=== PATIENT | female | born 1955 | race Caucasian/White ===

== ENCOUNTER 2024-03-26 14:28 | Inpatient (IN) ==
[2024-03-26 15:58] LABS: Appearance Urine Slightly Cloudy (Clear); Bilirubin Urine 1+ (Negative); Blood Urine Negative (Negative); Color Urine Yellow; Glucose Urine UA Negative (Negative); Ketones Urine 2+ (Negative); Leukocyte Esterase Urine Negative (Negative); Nitrite Urine Negative (Negative); Protein Urine 1+ (Negative); Specific Gravity Urine 1.025 (1.000-1.030); Urobilinogen Urine Negative (Negative)
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
[2024-03-26 16:38] LABS: Hematocrit (blood only) 38.9 % (37.0-47.0); Mean Corpuscular Hgb Conc 33.4 g/dL (32.0-36.0); Mean Corpuscular Volume 92.8 fL (80.0-100.0); Mean Platelet Volume 11.1 fL (9.4-12.4); Platelet Count 250 K/uL (130-400); RDW Coefficient of Variation 12.9 % (11.5-14.5); RDW Standard Deviation 43.7 fL (36.4-46.3); Red Blood Count 4.19 M/uL (4.20-5.40); White Blood Count 12.07 K/ul (4.8-10.8)
[2024-03-26 16:44] LABS: Albumin Globulin Ratio 1.6 (0.9-2); Albumin Level 4.4 gm/dl (3.4-5.0); BUN Creatinine Ratio 23.2 (10-20); Bilirubin,Total 0.7 mg/dl (0.2-1.0); Calcium 9.1 mg/dl (8.6-10.3); Creatinine Clr Calc Pharmacy 58.3 ml/min; Est GFR (African American) 84.6 ml/min; Globulin 2.7 gm/dl (2.5-4.0); Potassium 3.2 mmol/L (3.5-5.1); Total Protein 7.1 gm/dl (6.0-8.3)
[2024-03-26 16:50] LABS: Basophils # (auto) 0.04 K/uL (0.00-0.20); Basophils % (auto) 0.3 %; Eosinophils # (auto) 0.21 K/uL (0.00-0.50); Eosinophils % (auto) 1.7 %; Immature Granulocytes # (auto) 0.04 K/uL (0.01-0.20); Immature Granulocytes % (auto) 0.3 %; Lymphocytes # (auto) 2.82 K/uL (1.20-3.40); Lymphocytes % (auto) 23.4 %; Monocytes # (auto) 0.99 K/uL (0.11-0.59); Monocytes % (auto) 8.2 %; Neutrophils # (auto) 7.97 K/uL (1.40-6.50); Neutrophils % (auto) 66.1 %
[2024-03-26 16:59] LABS: Thyroid Stimulating Hormone 3.333 uIu/ml (0.300-4.500)
[2024-03-26 17:02] LABS: Acetaminophen < 3 ug/ml (10-30); Salicylate < 3.0 mg/dl (3.0-30)
[2024-03-26] MEDS: hydrOXYzine HCl 25 MG TAB PO STA (17:03)
[2024-03-26] MEDS: LORazepam 1 MG TAB SL STA (18:19)
[2024-03-26 18:46] LABS: Amphetamines+Metham, Urine Neg (Neg); Barbiturates, Urine Neg (Neg); Benzodiazepine, Urine Neg (Neg); Cocaine, Urine Neg (Neg); Fentanyl, Urine Neg (Neg); MDMA (Ecstacy), Urine Pos (Neg); Marijuana, Urine Pos (Neg); Methadone, Urine Neg (Neg); Opiate, Urine Neg (Neg); Phencyclidine, Urine Neg (Neg)
--- NOTE | 2024-03-26 20:28 | Emergency Department Note ---
ED Visit Note The patient was taken in signout from Genevieve at the change of shift. Please see that note for details. Patient was pending inpatient psychiatric placement for increased anxiety where she wanted to await the possibility of a bed being available in [facility] This is anticipated to be available tomorrow. The patient has been medically cleared. Patient's medications have been ordered. Patient is voluntary. The patient was signed out to Dr. Baer at change of shift. .
[2024-03-26] MEDS: buPROPion XL 300 MG TABCR PO SCH (20:38)
[2024-03-26] MEDS: traZODone HCL 100 MG TAB PO SCH (20:39)
[2024-03-26] MEDS: DULoxetine HCL 30 MG CAP PO SCH (20:39)
--- NOTE | 2024-03-27 07:17 | Emergency Department Note ---
ED Visit Note Date and Time: 03/27/2024 330 Interval History: Sign out received from Dr. Cummings who reviewed details of the encounter. Patient was pending bed placement. Summary: patient is willing to admit herself voluntarily for inpatient psychiatric care. She will be evaluated by staff from [facility] today once they have a bed available Disposition: the case will be signed out to Dr. Ortega .
--- NOTE | 2024-03-27 08:20 | Emergency Department Note ---
ED Visit Note The patient was taken in signout from Dr. Baer at the change of shift. Please see that note for details. The patient was pending evaluation by [facility] for admission. There was a delay due to pending discharge to open of a bed. I did evaluate the patient. She was unhappy with her wait for a bed. She was feeling anxious. She had previously received a dose of Ativan sublingual. I did offer another dose and this was ordered. Patient was evaluated by [facility] and admitted for further management. .
[2024-03-27] MEDS: LORazepam 1 MG TAB SL STA (10:15)
[2024-03-27] MEDS ORDERED: ALUMINUM/MAGNESIUM SUSP 30 ML UDC PO PRN (15:09)
[2024-03-27] MEDS ORDERED: hydrOXYzine HCl 25 MG TAB PO PRN ×2 (15:09)
[2024-03-27] MEDS ORDERED: SODIUM CHLORIDE 0.65% NA SOLN 45 ML (OCEAN) PRN (15:09)
[2024-03-27] MEDS ORDERED: BISMUTH SUBSALICYLATE LIQD 236 ML PO PRN (15:09)
[2024-03-27] MEDS ORDERED: MAGNESIUM HYDROXIDE SUSP 30 ML UDC PO PRN (15:09)
[2024-03-27] MEDS: GABAPENTIN 100 MG CAP PO PRN (17:16)
[2024-03-27] MEDS: estradioL 1 MG TAB PO ONE (18:17)
[2024-03-27] MEDS: buPROPion XL 300 MG TABCR PO ONE (18:18)
[2024-03-27] MEDS: DULoxetine HCL 30 MG CAP PO ONE (18:18)
[2024-03-27] MEDS: traZODone HCL 100 MG TAB PO SCH (20:52)
[2024-03-28] MEDS: ACETAMINOPHEN 325 MG TAB PO PRN (06:23)
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
[2024-03-28] MEDS: DULoxetine HCL 60 MG CAP PO SCH (11:31)
[2024-03-28] MEDS: ARIPiprazole 5 MG TAB PO SCH (11:32)
[2024-03-28] MEDS: PROPRANOLOL HCL 10 MG TAB PO PRN (11:34)
[2024-03-28] MEDS: POLYETHYLENE (MIRALAX) 17 GM PACK PO PRN (19:00)
[2024-03-28] MEDS: estradioL 1 MG TAB PO SCH (20:40)
[2024-03-29 08:46] LABS: Estimated Average Glucose 97 mg/dl
--- NOTE | 2024-03-29 09:26 | Psychiatric Progress Note ---
Date of Service March 29, 2024 Impression / Recommendations Impression JEREMY JORDAN is a 68-year-old woman who currently lives in [place] with her , has a history of anxiety disorder, and was admitted on 03/27/24 14:29 on a 201 voluntary commitment for worsened depression, anxiety and trauma symptoms with inability to function. Diagnostically consistent with major depressive disorder with anxious distress and PTSD as well as JOYCE. A: Today mood lability has lessened significantly, anxiety and panic symptoms are responding well to processing and medication adjustments. Tolerating medication changes without any side effects so far. Reviewed glucose, HbA1c and fasting lipid panel all normal and reassuring for use of abilify for depression augmentation. Working on disposition planning, especially trying to find outpatient therapy options. MNPR due to recent mood lability, anxiety/hypervigilance Overall, I spent a total of 35 minutes on this case including meeting with the patient, reviewing the chart, nursing report, multidisciplinary team meeting, orders, and documentation. (1) Major depressive disorder, single episode, severe with anxious distress: (2) Post traumatic stress disorder: (3) JOYCE (generalized anxiety disorder): Plan 03/29/2024: Continue current medications and tx plan. 03/28/2024: The patient was admitted to the [facility] ([facility] inpatient mental health unit) on q15 min checks (behavioral with suicide precautions) for safety. The patient will participate in group, recreational, and milieu therapies and will be offered additional individual and family sessions as clinically appropriate. -Increase Cymbalta to 60mg daily -Start abilify 2.5mg qd -Continue trazodone 100mg HS -Discontinue Wellbutrin and phentermine -Propranolol 10mg BID prn for anxiety -Fasting lipid panel, glucose and hbA1c in the morning Inventory Assets Strengths: supportive relationships, willing to get treatment Needs: safety and stabilization, medication adjustment, additional coping skills, increased outpatient services Suicide Risk Level Suicide Risk Level: Moderate (q15 min suicide checks) (severe depression and anxiety but denies current SI and feels safe in the hospital) Risk Factors Assessment Male: No : Yes Do You Have Access To A Gun?: No Health Problems: No Mental Health Diagnoses: Yes Substance Use Disorders: No Previous Attempt: No Family History of Suicide: No Previous Psychiatric Hospitalization: No Hopelessness: Yes Protective Factors Assessment : Yes Employed: No Stable Relationships: Yes Supportive Family: Yes Interval History Identifying Information JEREMY JORDAN is a 68-year-old woman who currently lives in [place] with her , has a history of anxiety disorder, and was admitted on 03/27/24 14:29 on a 201 voluntary commitment for worsened depression, anxiety and trauma symptoms. Chief Complaint "A little tired ". Review of Systems Sleep Information Total Hours of Sleep: 6.30 Meal Information Percent Meal Consumed - Breakfast: 100 Percent Meal Consumed - Lunch: 75 Percent Meal Consumed - Dinner: 75 Subjective Subjective Patient was seen & assessed and interval progress reviewed with treatment team nursing and social work. Skept 6.5 hours. Periods of irritability. Attended a few groups reported her mood last night as confused. Today reports some fatigue due to not sleeping well which she attributes to the poor support from the plastic mattress. Otherwise feels her mood has improved significantly today. Finding groups today helpful and has given her a new perspective and reflected on things in her life she is grateful for, including having good conversations with each of her children. No sedation from the abilify, she feels it may be helping. Propranolol seems helpful for physical manifestations of anxiety, finding this beneficial and no side effects. Tolerating other medication changes well. Expresses appreciation for our discussion yesterday as it is helping her remember that her feelings are valid and to reduce the shame she had. Expresses gratitude for boundaries and advice from other staff as well. Feels more like herself today. Physical Exam Psychiatric Orientation: alert and oriented x 3 Apperance: appropriately dressed and appropriately groomed Eye Contact: good eye contact Motor Behavior: no abnormal motor movements Speech: normal rate/rhythm/volume of speech Affect: + anxious affect Mood: + anxious mood Thought Process: linear/logical thought process Thought Content: reality based without delusions Suicidal Thoughts: denies suicidal thoughts, denies suicidal plan and denies suicidal intent Homicidal Thoughts: denies homicidal thoughts Hallucinations: no auditory hallucinations and no visual hallucinations Cognition: recent memory grossly intact, remote memory grossly intact, attention grossly intact and language grossly intact Estimated Intelligence: consistent with education level Insight: + fair insight Judgment: + fair judgement Vital Signs (Past 24 Hours) Last Vital Signs Temp 36.8 C 03/29/24 06:42 Pulse 80 03/29/24 06:43 Resp 18 03/29/24 06:42 BP 131/73 03/29/24 06:43 Pulse Ox 97 03/28/24 06:27 O2 Del Method Room Air 03/28/24 06:27 Results & Data ([facility]) Laboratory Results Laboratory Results - last 24 hr 03/29/24 07:48 Fasting Glucose Pending Estimat Average Glucose 97 Hemoglobin A1c 5.0 Triglycerides Pending Cholesterol Pending VLDL Cholesterol, Calc Pending HDL Cholesterol Pending Cholesterol/HDL Ratio Pending Current Inpatient Medications Current Inpatient Medications: Current Inpatient Medications Acetaminophen (Acetaminophen 325 Mg Tab) 650 mg PO Q4H PRN PRN Reason: Headache or Minor Fever Stop: 04/26/24 15:08 Last Admin: 03/29/24 06:41 Dose: 650 mg Al Hydrox/Mg Hydrox/Simethicone (Aluminum/Magnesium Susp 30 Ml Udc) 30 ml PO Q4H PRN PRN Reason: GI Upset Stop: 04/26/24 15:08 Aripiprazole (Aripiprazole 5 Mg Tab) 2.5 mg PO QAM [facility]AY Stop: 04/27/24 10:29 Last Admin: 03/29/24 08:53 Dose: 2.5 mg Bismuth Subsalicylate (Bismuth Subsalicylate Liqd 236 Ml) 15 ml PO PRN PRN PRN Reason: Loose Stool Stop: 04/26/24 15:08 Duloxetine HCl (Duloxetine Hcl 60 Mg Cap) 60 mg PO QAM [facility]AY Stop: 04/27/24 10:29 Last Admin: 03/29/24 08:55 Dose: 60 mg Estradiol (Estradiol 1 Mg Tab) 1 mg PO HS [facility]AY Stop: 04/27/24 21:59 Last Admin: 03/28/24 20:40 Dose: 1 mg Hydroxyzine HCl (Hydroxyzine Hcl 25 Mg Tab) 50 mg PO HSZ PRN PRN Reason: Insomnia Stop: 04/26/24 15:08 Hydroxyzine HCl (Hydroxyzine Hcl 25 Mg Tab) 25 mg PO Q4H PRN PRN Reason: Anxiety Stop: 04/26/24 15:08 Magnesium Hydroxide (Magnesium Hydroxide Susp 30 Ml Udc) 30 ml PO DAILY PRN PRN Reason: Constipation Stop: 04/26/24 15:08 Polyethylene Glycol (Polyethylene (Miralax) 17 Gm Pack) 17 gm PO DAILY PRN PRN Reason: Constipation Stop: 04/27/24 18:49 Last Admin: 03/28/24 19:00 Dose: 17 gm Propranolol HCl (Propranolol Hcl 10 Mg Tab) 10 mg PO BID PRN PRN Reason: Anxiety/Agitation Stop: 04/27/24 10:29 Last Admin: 03/28/24 18:43 Dose: 10 mg Sodium Chloride (Sodium Chloride 0.65% Na Soln 45 Ml ([place])) 1 - 2 sprays NA PRN PRN PRN Reason: Nasal Dryness/Congestion Stop: 04/26/24 15:08 Trazodone HCl (Trazodone Hcl 100 Mg Tab) 100 mg PO [facility] Stop: 04/26/24 21:59 Last Admin: 03/28/24 20:40 Dose: 100 mg
[2024-03-29 09:48] LABS: Chol HDL Ratio 2.5 (0-5)
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
[2024-04-01 11:02] LABS: MDA negative; MDEA negative; MDMA (Ecstasy) Urine, Confirm negative; Marijuana Quant, GCMS Urine 930 ng/mL (<5)
== END 2024-03-30 11:21 | disposition home or self-care (01) | DRG 885 ==
LOC: ED 14:28 → 3S 03-27 14:29 → ED 03-27 14:43